=== PATIENT | female | born 1960 | race Caucasian/White ===

== ENCOUNTER 2024-12-06 13:17 | Day surgery (SDC) | payer OTHER ==
[2024-12-06] MEDS: Lactated Ringers 1,000 ML IV SCH (13:48)
[2024-12-06 14:13] VITALS: RESP 18
[2024-12-06] MEDS ORDERED: propofoL IV ONE ×2 (15:24→15:35)
[2024-12-06] MEDS ORDERED: Versed 2 MG/2 ML Injection ONE (15:26)
[2024-12-06] MEDS ORDERED: Xylocaine-Mpf 2% 5 Ml Vial ONE (15:28)
[2024-12-06 16:15] VITALS: BP 122/69; PULSE 74; TEMP 97.1; O2SAT 99
--- NOTE | 2024-12-10 08:46 | OP ---
SURGERY DATE/TIME: 12/06/2024 [id number] PREOPERATIVE DIAGNOSES: 1) History of hiatal hernia. 2) Reflux. 3) Essentially due for colorectal cancer screening and also having some change in bowels, constipation. POSTOPERATIVE DIAGNOSES: 1) Mild gastritis. 2) Small 1 to 2 cm sliding hiatal hernia. 3) Colon polyps 3 mm x2. PROCEDURES: 1) Esophagogastroduodenoscopy with biopsy. 2) Colonoscopy with polypectomy x2. SURGEON: Fabio Cardona M.D. ANESTHESIA: IV anesthesia. CONDITION: Stable. COMPLICATIONS: None. SPECIMENS: 1) Gastric biopsy for H pylori. 2) Splenic flexure 3 mm polyp. 3) Rectosigmoid polyp, 2 mm. INDICATIONS: Patient presents having some change in bowels, constipation. She is essentially due for colorectal cancer screening, average risk. She is right about at 10 years now. She has a history of hiatal hernia with some reflux. I discussed with patient and she elects to proceed. FINDINGS: Mild gastritis with erythema. Small 1 to 2 cm sliding hiatal hernia. Two small polyps. Good preparation. DESCRIPTION OF PROCEDURE AND FINDINGS: Patient was brought to the endoscopy suite, routinely positioned, and prepared. IV anesthesia induced by Anesthesia. Gastroscope inserted through the mouth and advanced through the third portion of the duodenum. Duodenum is normal in appearance. Stomach just with mild gastritis and erythema. Biopsy is taken for H pylori. Retroflexion just shows 1 cm to 2 cm sliding hiatal hernia. GE junction is normal. Stomach is suctioned out. Scope is withdrawn. Esophagus is normal. External examination normal. Digital rectal examination normal. Colonoscope inserted, advanced to the cecum confirmed by the appendiceal orifice and the ileocecal valve. The preparation is [place] good preparation. Greater than 6-minute withdrawal time. On withdrawal, there is a 3 mm sessile polyp at the splenic flexure taken with cold forceps that is adenomatous in appearance. At the rectosigmoid, there is a 2 mm hyperplastic-appearing polyp taken with cold forceps. Retroflexion with just minimal internal hemorrhoids. Scope withdrawn. Patient tolerated the procedure well and was taken to recovery in stable condition. RECOMMENDATIONS: Follow up in office for pathology results. Could consider a PPI if she is not on one. Next colonoscopy will depend on the pathology results, probably around 5 years.
== END 2024-12-06 16:24 | disposition home or self-care (01) ==
LOC: SDC 13:17
PROVIDERS: ATTEND Surgery
DX: Z12.11 Encounter for screening for malignant neoplasm of colon (principal); K59.00 Constipation, unspecified; K44.9 Diaphragmatic hernia without obstruction or gangrene; K21.9 Gastro-esophageal reflux disease without esophagitis; K29.70 Gastritis, unspecified, without bleeding; K64.8 Other hemorrhoids; D12.7 Benign neoplasm of rectosigmoid junction; D12.3 Benign neoplasm of transverse colon